=== PATIENT | female | born 1970 ===

== ENCOUNTER 2017-07-23 16:33 | Emergency (ER) | payer SELFPAY ==
[2017-07-23 17:14] VITALS: BMI 31.3
[2017-07-23 17:22] VITALS: BP 108/72; PULSE 82; RESP 17; TEMP 98.5; O2SAT 99
[2017-07-23] MEDS ORDERED: Albuterol-Ipratrop 3 mg / 0.5 (3 ml) UD INH STA (19:12)
--- NOTE | 2017-07-23 19:19 | C.PDOC ---
History Of Present Illness 46 year old non smoker female presents to the ED c/o cough, wheezing, congestion for the past 6 days. Patient reports using her son's nebulizer at home, she went to the clinic today and was given a steroid shot and was told to she needed to come to the ED for a CXR. Patient also c/o CP when coughing, but denies any fever, nausea, abdominal pain, dizziness, headache, weakness, numbness. Time Seen by Provider: 07/23/17 17:44 Chief Complaint (Nursing): Cough, Cold, Congestion History Per: Patient History/Exam Limitations: no limitations Onset/Duration Of Symptoms: Days Current Symptoms Are (Timing): Still Present Associated Symptoms: Cough, Nasal Congestion. denies: Fever, Sputum, Vomiting, Diarrhea Ear Symptoms: Bilateral: None Recent travel outside of the [place]: No Additional History Per: Patient Past Medical History Reviewed: Historical Data, Nursing Documentation, Vital Signs Vital Signs: Last Vital Signs Temp 98.5 F 07/23/17 17:15 Pulse 82 07/23/17 17:15 Resp 17 07/23/17 17:15 BP 108/72 07/23/17 17:15 Pulse Ox 99 07/23/17 19:19 - Medical History PMH: Bronchitis Surgical History: No Surg Hx Family History: States: Unknown Family Hx - Social History Hx Alcohol Use: No Hx Substance Use: No - Immunization History Hx Tetanus Toxoid Vaccination: No Hx Influenza Vaccination: Yes (2016) Hx Pneumococcal Vaccination: No Review Of Systems ENT: Positive for: Nose Congestion Cardiovascular: Positive for: Chest Pain (when coughing ) Respiratory: Positive for: Cough. Negative for: Shortness of Breath Skin: Negative for: Rash Physical Exam - Physical Exam Appears: Non-toxic, No Acute Distress Skin: Normal Color, Warm, Dry Head: Atraumatic, Normacephalic Eye(s): bilateral: Normal Inspection, PERRL Ear(s): Bilateral: Normal Nose: No Discharge, No Deformity Oral Mucosa: Moist, No Drooling Throat: Normal, No Erythema, No Exudate Neck: Normal ROM, Supple Cardiovascular: Rhythm Regular, No Murmur Respiratory: No Rales, No Rhonchi, Wheezing (Expiratory ) Gastrointestinal/Abdominal: Soft, No Tenderness, No Guarding, No Rebound Back: No CVA Tenderness Extremity: Normal ROM, No Deformity, No Swelling Neurological/Psych: Oriented x3, Normal Speech, Normal Cognition Gait: Steady ED Course And Treatment ECG: Interpreted By Me, Viewed By Me ECG Rhythm: Sinus Rhythm ECG Interpretation: Normal, No Acute Changes Interpretation Of ECG: EKG NSR 74 BPM normal axis, normal intervals, no ST or T wave changes Rate From EC O2 Sat by Pulse Oximetry: 99 (On RA) Pulse Ox Interpretation: Normal - Radiology CXR: Interpreted by Me, Viewed By Me CXR Interpretation: Yes: No Acute Disease. No: Infiltrates Medical Decision Making Medical Decision Making: Plan: * EKG ordered * CXR ordered * Albuterol 3 ml INH given * Zithromycin 500 mg PO given * Nebulizer treatment Patient will be d/c with diagnosis of bronchitis, prescribed Z-pack, steroids, albuterol at home. Patient was told to follow up with PMD in 2 days or to return to the ED if symptoms worsened. Disposition Counseled Patient/Family Regarding: Diagnosis, Need For Followup, Rx Given - Disposition Disposition: HOME/ ROUTINE Disposition Time: 19:30 Condition: IMPROVED Additional Instructions: follow up with your doctor in 2 days call to make an appointment take medications as prescribed return to hospital if symptoms worsens or progress Prescriptions: Albuterol HFA [Ventolin HFA 90 mcg/actuation (8 g)] 2 puff IH [id number] #1 puff Albuterol 0.083% [Albuterol Sulfate 3 Ml] 3 ml IH Q6 PRN #50 neb PRN Reason: Cough And Congestion Azithromycin [Zithromax] 250 mg PO DAILY #4 tab predniSONE [predniSONE Tab] 50 mg PO DAILY #4 tab Instructions: Acute Bronchitis (ED) Forms: [facility] (Marshallese), General Discharge Instructions - Clinical Impression Clinical Impression: Bronchitis - Scribe Statement The provider has reviewed the documentation as recorded by the Scribe Christopher Parnell All medical record entries made by the Scribe were at my direction and personally dictated by me. I have reviewed the chart and agree that the record accurately reflects my personal performance of the history, physical exam, medical decision making, and the department course for this patient. I have also personally directed, reviewed, and agree with the discharge instructions and disposition.
[2017-07-23] MEDS ORDERED: Albuterol-Ipratrop 3 mg / 0.5 (3 ml) UD ONE (19:24)
--- NOTE | 2017-07-24 08:11 | RAD ---
HISTORY: cough COMPARISON: None available. TECHNIQUE: Chest PA and lateral FINDINGS: Examination limited by habitus. LUNGS: Mild biapical pleural thickening. No focal consolidation. Please note that chest x-ray has limited sensitivity for the detection of pulmonary masses. PLEURA: No significant pleural effusion identified. No definite pneumothorax . CARDIOVASCULAR: The cardiomediastinal silhouette appears within normal limits of size. OSSEOUS STRUCTURES: No acute osseous abnormality identified. VISUALIZED UPPER ABDOMEN: Unremarkable. OTHER FINDINGS: None. IMPRESSION: No focal consolidation, significant pleural effusion, or definite pneumothorax identified.
--- NOTE | 2017-07-25 10:31 | CARD ---
APPROVED REPORT EKG Measurement Heart [id number] [place] 134P24 [id number] <Conclusion> Normal sinus rhythm Normal ECG
== END 2017-07-23 19:46 | disposition home or self-care (01) ==
LOC: C.ER 16:33
DX: J40 Bronchitis, not specified as acute or chronic (principal)

== ENCOUNTER 2018-09-20 17:36 | Emergency (ER) | payer MEDICAID ==
[2018-09-20 17:36] VITALS: BMI 31.3
[2018-09-20 17:49] VITALS: O2SAT 99
--- NOTE | 2018-09-20 19:13 | C.PDOC ---
History Of Present Illness 48 year old female presents to the ED for evaluation of sore throat, cough, mid- back pain, and pleuritic pain associated with cough that began 4 days ago. Patient has been taking NyQuil without relief. She was seen by her PMD today and told she had an "unusual sound in her lung." Patient states that no tests were ordered and she presents to the ED for a second opinion. Patient denies fever, chills, shortness of breath. Time Seen by Provider: 09/20/18 17:56 Chief Complaint (Nursing): ENT Problem History Per: Patient History/Exam Limitations: no limitations Onset/Duration Of Symptoms: Days (4) Current Symptoms Are (Timing): Still Present Additional History Per: Patient Past Medical History Reviewed: Historical Data, Nursing Documentation, Vital Signs Vital Signs: Last Vital Signs Temp 98.3 F 09/20/18 17:46 Pulse 81 09/20/18 17:46 Resp 20 09/20/18 17:46 BP 130/77 09/20/18 17:46 Pulse Ox 99 09/20/18 17:46 - Medical History PMH: Bronchitis Surgical History: Cholecystectomy Family History: States: Unknown Family Hx - Social History Hx Alcohol Use: No Hx Substance Use: No - Immunization History Hx Tetanus Toxoid Vaccination: No Hx Influenza Vaccination: Yes (2016) Hx Pneumococcal Vaccination: No Review Of Systems ENT: Positive for: Throat Pain Cardiovascular: Positive for: Other (pleuritic pain associated with cough ) Respiratory: Positive for: Cough Musculoskeletal: Positive for: Back Pain (mid) Physical Exam - Physical Exam Appears: Non-toxic, No Acute Distress Skin: Normal Color, Warm, Dry Head: Atraumatic, Normacephalic Eye(s): bilateral: Normal Inspection Ear(s): Bilateral: Normal Nose: Normal, No Discharge Oral Mucosa: Moist Throat: Normal, No Erythema, No Exudate Neck: Supple Chest: Symmetrical, No Deformity, No Tenderness Cardiovascular: Rhythm Regular, No Murmur Respiratory: Normal Breath Sounds, No Rales, No Rhonchi, No Wheezing Extremity: Normal ROM, Capillary Refill (less than 2 seconds ) Neurological/Psych: Oriented x3, Normal Speech, Normal Cognition ED Course And Treatment O2 Sat by Pulse Oximetry: 99 (on RA) Pulse Ox Interpretation: Normal Medical Decision Making Medical Decision Making: Progress: Patient with unremarkable physical exam. On reassessment, patient is resting comfortably, showing no signs of distress and is stable for discharge. Patient is advised to follow up with her PMD within 1-2 days for further evaluation. Return to ED if worse. Disposition Counseled Patient/Family Regarding: Diagnosis, Need For Followup, Rx Given - Disposition Disposition: HOME/ ROUTINE Disposition Time: 19:12 Condition: GOOD Additional Instructions: Continue taking bromophed for your cough. Recommend zyrtec at bedtime. Ibuprofen 600 mg by mouth every 6 hours for pain. Drink increased fluids. Follow up with PMD in few days. Return to ER for worse symptoms. Instructions: Viral Upper Respiratory Infection, Adult (DC) Forms: [email or web address] [facility] (Omani), General Discharge Instructions - Clinical Impression Clinical Impression: Upper respiratory infection - PA / GARMENT LOOPER / Resident Statement MD/DO has reviewed & agrees with the documentation as recorded. - Scribe Statement The provider has reviewed the documentation as recorded by the Scribe (Ivon Thomas) All medical record entries made by the Scribe were at my direction and personally dictated by me. I have reviewed the chart and agree that the record accurately reflects my personal performance of the history, physical exam, medical decision making, and the department course for this patient. I have also personally directed, reviewed, and agree with the discharge instructions and disposition.
[2018-09-20 19:28] VITALS: BP 120/70; PULSE 80; RESP 14; TEMP 98
== END 2018-09-20 19:28 | disposition home or self-care (01) ==
LOC: C.ER 17:36
DX: J06.9 Acute upper respiratory infection, unspecified (principal)

== ENCOUNTER 2019-01-09 13:03 | Emergency (ER) | payer MEDICAID ==
[2019-01-09 13:03] VITALS: BMI 31.3
--- NOTE | 2019-01-09 13:40 | C.PDOC ---
History Of Present Illness 48 year old female presents to ED with complaint of left upper quadrant pain since yesterday. 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 She denies fall, injury, nausea, vomiting, diarrhea, dysuria, hem aturia, chest pain, SOB, fever, and cough. Time Seen by Provider: 01/09/19 13:09 Chief Complaint (Nursing): Abdominal Pain History Per: Patient History/Exam Limitations: no limitations Onset/Duration Of Symptoms: Days (1) Current Symptoms Are (Timing): Still Present Location Of Pain/Discomfort: LUQ Radiation Of Pain To:: None Quality Of Discomfort: "Pain" Associated Symptoms: denies: Fever, Chills, Nausea, Vomiting, Diarrhea, Urinary Symptoms Past Medical History Reviewed: Historical Data, Nursing Documentation, Vital Signs Vital Signs: Last Vital Signs Temp 97.7 F 01/09/19 13:05 Pulse 81 01/09/19 13:05 Resp 20 01/09/19 13:05 BP 109/68 01/09/19 13:05 Pulse Ox 98 01/09/19 13:05 - Medical History PMH: Bronchitis Surgical History: Cholecystectomy Family History: States: Unknown Family Hx - Social History Hx Alcohol Use: No Hx Substance Use: No - Immunization History Hx Tetanus Toxoid Vaccination: No Hx Influenza Vaccination: No Hx Pneumococcal Vaccination: No Review Of Systems Constitutional: Negative for: Fever, Chills Cardiovascular: Negative for: Chest Pain Respiratory: Negative for: Cough, Shortness of Breath Gastrointestinal: Positive for: Abdominal Pain (left upper quadrant). Negative for: Nausea, Vomiting, Diarrhea Genitourinary: Negative for: Dysuria, Hematuria Musculoskeletal: Negative for: Back Pain Physical Exam - Physical Exam Appears: Well, Non-toxic, No Acute Distress, Other (comfortable) Skin: Normal Color, Warm, Dry, No Rash Head: Atraumatic, Normacephalic Neck: Normal ROM, Supple Chest: Symmetrical, No Deformity Cardiovascular: Rhythm Regular, No Murmur Respiratory: No Accessory Muscle Use, No Rales, No Rhonchi, No Wheezing Gastrointestinal/Abdominal: Tenderness (mild left upper quadrant tenderness), No Other (Valdez's sign, McBurney's point tenderness) Back: No CVA Tenderness Extremity: Capillary Refill (<2 seconds) Extremity: Bilateral: Atraumatic, Normal Color And Temperature, Normal ROM Pulses: Left Radial: Normal, Right Radial: Normal Neurological/Psych: Oriented x3, Normal Speech, Normal Cognition ED Course And Treatment - Laboratory Results Result Diagrams: 01/09/19 13:52 01/09/19 13:52 O2 Sat by Pulse Oximetry: 98 (in RA) Pulse Ox Interpretation: Normal - Other Rad Obstructive series X-Ray: Viewed By Me Interpretation: IMPRESSION: Cardiomegaly. Cholecystectomy clips. Moderate constipation. Progress Note: EKG and Obstructive series ordered for patient. CMP, lipase, CBC, and UA. Patient given Pepcid IVP. Disposition Counseled Patient/Family Regarding: Diagnosis, Need For Followup, Rx Given - Disposition Referrals: Juancarlos Lakhani MD [Staff Provider] - [facility] [place] [Outside] Disposition: HOME/ ROUTINE Disposition Time: 17:50 Condition: STABLE Additional Instructions: FOLLOW UP WITH GENERAL SURGEON WITHIN 1 WEEK FOR FURTHER EVALUATION USE PAIN MEDICATION NEEDED RETURN TO ER IF SYMPTOMS WORSEN Prescriptions: Naproxen 375 mg PO BID PRN #20 tablet PRN Reason: pain Instructions: Abdominal Hernia (DC) Forms: [employer] (Monegasque) Print Language: MEXICAN - Clinical Impression Clinical Impression: LUQ abdominal pain - Scribe Statement The provider has reviewed the documentation as recorded by the Scribe (Dianne Mancia) All medical record entries made by the Scribe were at my direction and personally dictated by me. I have reviewed the chart and agree that the record accurately reflects my personal performance of the history, physical exam, medical decision making, and the department course for this patient. I have also personally directed, reviewed, and agree with the discharge instructions and disposition.
[2019-01-09 13:55] LABS: BASO # 0.1 K/uL (0.0-0.2); BASO % 0.7 % (0.0-2.0); EOS # 0.2 K/uL (0.0-0.7); EOS % 2.4 % (0.0-4.0); HEMOGLOBIN 13.1 g/dL (11.0-16.0); LYMPH # 2.8 K/uL (1.0-4.3); LYMPH % 38.2 % (20.0-40.0); MEAN CELL VOLUME 87.1 fL (81.0-99.0); MEAN CORPUSCULAR HEMOGLOBIN 29.5 pg (27.0-31.0); MEAN CORPUSCULAR HGB CONC 33.9 g/dL (33.0-37.0); MEAN PLATELET VOLUME 10.2 fL (7.2-11.7); MONO # 0.6 K/uL (0.0-0.8); MONO % 8.4 % (0.0-10.0); NEUT # 3.7 K/uL (1.8-7.0); NEUT % 50.3 % (50.0-75.0); RBC 4.43 Mil/uL (3.80-5.20); RED CELL DISTRIBUTION WIDTH 13.6 % (11.5-14.5); WHITE BLOOD COUNT 7.4 K/uL (4.8-10.8)
[2019-01-09 14:10] LABS: ALB/GLOB RATIO 1.4 (1.0-2.1); ALBUMIN 4.6 g/dL (3.5-5.0); ALT/SGPT 9 U/L (9-52); AST/SGOT 23 U/L (14-36); BLOOD UREA NITROGEN 14 mg/dL (7-17); CALCIUM 9.2 mg/dl (8.6-10.4); GFR NON-AFRICAN AMERICAN > 60; LIPASE 60 U/L (23-300)
[2019-01-09 14:42] LABS: SQUAMOUS EPITHIAL 10 /hpf (0-5); URINE BILIRUBIN NEGATIVE (NEGATIVE); URINE BLOOD NEGATIVE (NEGATIVE); URINE CLARITY Hazy (Clear); URINE COLOR Yellow (YELLOW); URINE GLUCOSE (UA) NORMAL (Normal); URINE LEUKOCYTE ESTERASE NEG Leu/uL (Negative); URINE PROTEIN NEGATIVE (NEGATIVE)
--- NOTE | 2019-01-09 15:49 | RAD ---
Date of service: 01/09/2019 PROCEDURE: Radiographs of the chest and abdomen (obstructive series) HISTORY: left sided upper abd pain COMPARISON: None available. TECHNIQUE: AP radiograph of the chest, with upright and supine radiographs of the abdomen. FINDINGS: CHEST: Heart size appears within normal limits. No focal consolidation, significant pleural effusion, or definite pneumothorax. Please note that chest x-ray has limited sensitivity for the detection of pulmonary masses. ABDOMEN AND PELVIS: Cholecystectomy clips. Nonspecific bowel gas pattern. Moderate constipation. No definite free air. No acute osseous abnormality is detected. IMPRESSION: Cardiomegaly. Cholecystectomy clips. Moderate constipation.
--- NOTE | 2019-01-09 17:48 | CT ---
PROCEDURE: CT Abdomen and Pelvis without Oral or IV contrast. HISTORY: LUQ,L FLank pain COMPARISON: None available. TECHNIQUE: Contiguous axial images of the abdomen and pelvis. No oral or IV contrast administered. Coronal and Sagittal reformats generated and reviewed. Radiation dose: Total exam DLP = 421.95 mGy-cm. This CT exam was performed using one or more of the following dose reduction techniques: Automated exposure control, adjustment of the mA and/or kV according to patient size, and/or use of iterative reconstruction technique. FINDINGS: There is limited evaluation of the solid organs without the administration of IV contrast. LOWER THORAX: No visible consolidation, pleural effusion, or pneumothorax. LIVER: Borderline hepatomegaly. GALLBLADDER AND BILE DUCTS: Cholecystectomy clips. PANCREAS: Unremarkable unenhanced appearance. SPLEEN: 10 mm splenule. Otherwise unremarkable unenhanced appearance. ADRENALS: Unremarkable. KIDNEYS AND URETERS: No hydronephrosis or obstructing renal calculus. BLADDER: Thick-walled under distended urinary bladder. REPRODUCTIVE: Uterus is present. APPENDIX: No secondary signs of acute appendicitis. BOWEL: The stomach is nondistended. Lack of oral contrast limits evaluation for bowel pathology. The bowel loops appear within normal limits of caliber without evidence of intestinal obstruction. PERITONEUM: No significant free fluid. No definite free air. LYMPH NODES: No bulky lymphadenopathy identified. VASCULATURE: No significant atherosclerotic calcifications present. No aortic aneurysm. BONES: No acute osseous abnormality is detected. OTHER FINDINGS: Fat containing ventral wall hernias. IMPRESSION: Borderline hepatomegaly. Thick-walled under distended urinary bladder. Recommend correlation with urinalysis. Cholecystectomy clips. Fat containing ventral wall hernias.
[2019-01-09 18:08] VITALS: BP 126/82; PULSE 86; RESP 18; TEMP 98.1; O2SAT 100
--- NOTE | 2019-01-10 15:24 | CARD ---
APPROVED REPORT Date of service: 01/09/2019 EKG Measurement Heart [id number] 130P19 [id number] <Conclusion> Normal sinus rhythm Normal ECG
== END 2019-01-09 18:08 | disposition home or self-care (01) ==
LOC: C.ER 13:03
DX: R10.12 Left upper quadrant pain (principal)
CPT/HCPCS: 74022; 74176; 80053; 81001; 83690; 85025; 93005; 96374; 96375; 99284; J1885